=== PATIENT | female | born 1990 | race Two or more races ===

== ENCOUNTER → 2025-03-16 | Outpatient (CLI) | payer MEDICAID, SELFPAY ==
--- NOTE | 2025-03-16 12:30 | XR_ITS ---
Examination: Breast ultrasound complete, bilateral Date and time of exam: March 16, 2025 1328 hours INDICATIONS: Left breast 10:00 nodule 8 mm on sonogram October 25, 2018 Technique: Real-time grayscale ultrasonographic imaging bilateral breasts, including all 4 quadrants as well as nipple retroareolar and axillary regions. Findings: Sonographic images right breast 12:00 cyst 4 x 4 millimeter Retroareolar cyst 6 x 6 mm No solid nodules Sonographic images left breast 2:00 nodule circumscribed 9 x 6 mm IMPRESSION: BI-RADS Category 3: Probably benign findings Recommend 6 month follow-up left breast sonography to document stability of 2:00 nodule described above left breast
== END | disposition home or self-care (01) ==
LOC: CDIM 12:45
PROVIDERS: PCP Nurse Practitioner Primary Care; Referring Provider Nurse Practitioner Primary Care; Visit Provider Nurse Practitioner Primary Care
DX: Z12.39 Encounter for other screening for malignant neoplasm of breast (principal); N63.21 Unspecified lump in the left breast, upper outer quadrant
CPT/HCPCS: 76641